=== PATIENT | female | born 1965 | race Caucasian/White ===

== ENCOUNTER 2024-08-14 09:09 | Day surgery (SDC) | payer OTHER ==
[2024-08-14] MEDS ORDERED: dexAMETHasone sodium phosphate IJ ONE (09:10)
[2024-08-14] MEDS ORDERED: Sodium Chloride 0.9(Preservative Free) 10 ML IJ ONE (09:10)
[2024-08-14] MEDS ORDERED: Zofran 4 MG/2 ML VIAL ONE (10:25)
[2024-08-14] MEDS ORDERED: Pepcid 20 MG VIAL IV ONE (10:29)
[2024-08-14] MEDS ORDERED: propofoL IV ONE ×2 (10:51→11:02)
[2024-08-14] MEDS ORDERED: Lactated Ringers 1,000 ML IV ONE (11:12)
[2024-08-14] MEDS ORDERED: DILAUDID 0.5 MG/0.5 ML SYRINGE ONE (11:26)
--- NOTE | 2024-08-14 12:25 | XRAY ---
Indication: Left L4-L6 transforaminal BHARGAVI. Intraoperative fluoroscopy provided for 43 seconds. 4 digital spot image submitted for interpretation demonstrates posterior needle tips projecting over expected left L4 and L5 nerve roots. Small amount of contrast injected for needle tip placement. Correlate with intraoperative findings/report.
--- NOTE | 2024-08-14 12:27 | XRAY ---
43 seconds of fluoroscopy was used in surgery for a left L4-L6 transforaminal BHARGAVI.
== END 2024-08-14 11:57 | disposition home or self-care (01) ==
LOC: SDC-PAIN 09:09
PROVIDERS: ATTEND Psychiatry & Neurology Pain Medicine
DX: M54.16 Radiculopathy, lumbar region (principal); E11.9 Type 2 diabetes mellitus without complications
CPT/HCPCS: 64483; 64484; 72100; 82947; J1100; J1171; J2405; J2704; Q9966